=== PATIENT | female | born 1975 | race Caucasian/White ===

== ENCOUNTER 2016-10-03 06:18 | Emergency (ER) | payer MEDICAID ==
[2016-10-03 06:28] VITALS: TEMP 98.6; O2SAT 98
[2016-10-03] MEDS ORDERED: Dexamethasone 4 mg/1 ml IM STA (07:28)
[2016-10-03] MEDS ORDERED: Dexamethasone 4 mg/1 ml ONE (07:38)
[2016-10-03 07:46] VITALS: BP 147/71; PULSE 77; RESP 18
--- NOTE | 2016-10-03 07:50 | C.PDOC ---
History Of Present Illness 40 y/o female presents to ED with complaints of pain on right arm and elbow for the "past months" worse in the morning. Patient reports tingling in fingers and difficulty grasping items. Patient denies trauma, fever, rash numbness or weakness. No other complaints at this time. Time Seen by Provider: 10/03/16 07:06 Chief Complaint (Nursing): Upper Extremity Problem/Injury History Per: Patient History/Exam Limitations: no limitations Onset/Duration Of Symptoms: Days Current Symptoms Are (Timing): Still Present Quality: Sharp Past Medical History Reviewed: Historical Data, Nursing Documentation, Vital Signs Vital Signs: Last Vital Signs Temp 98.6 F 10/03/16 06:25 Pulse 77 10/03/16 07:45 Resp 18 10/03/16 07:45 BP 147/71 10/03/16 07:45 Pulse Ox 98 10/03/16 08:31 Family History: States: Unknown Family Hx - Social History Hx Tobacco Use: No Hx Alcohol Use: No Hx Substance Use: No - Immunization History Hx Tetanus Toxoid Vaccination: No Hx Influenza Vaccination: Yes Hx Pneumococcal Vaccination: No Review Of Systems Except As Marked, All Systems Reviewed And Found Negative. Constitutional: Negative for: Fever, Chills Cardiovascular: Negative for: Chest Pain Musculoskeletal: Positive for: Arm Pain. Negative for: Hand Pain Skin: Negative for: Rash Neurological: Negative for: Weakness, Numbness Physical Exam - Physical Exam Appears: Non-toxic, No Acute Distress Skin: Normal Color, Warm Head: Atraumatic, Normacephalic Eye(s): bilateral: Normal Inspection Oral Mucosa: Moist Extremity: No Normal ROM (Limited ROM on wrist secondary to pain), No Tenderness , Capillary Refill (<2 seconds), No Swelling Extremity: Bilateral: Atraumatic, Normal Color And Temperature Pulses: Right Brachial: Normal, Left Radial: Normal Neurological/Psych: Oriented x3, Normal Speech, Normal Motor, Normal Sensation Gait: Steady ED Course And Treatment O2 Sat by Pulse Oximetry: 98 (Room air ) Pulse Ox Interpretation: Normal Medical Decision Making Medical Decision Making: Sling was applied to the Right arm and checked by me. Disposition - Disposition Referrals: Edil Ling MD [Staff Provider] - Julio Hu MD [Provisional Staff] - Disposition: HOME/ ROUTINE Disposition Time: 08:29 Condition: GOOD Additional Instructions: Use the sling only as needed and no longer than 5 days. Follow up with the Hand surgeon for further evaluation. Prescriptions: Naproxen [Naprosyn] 500 mg PO BID #20 tab traMADol/Acetaminophen [Ultracet 325 MG-37.5 MG] 1 tab PO Q8 PRN #15 tab PRN Reason: Pain Instructions: Carpal Tunnel Syndrome (ED) Forms: Work Excuse - Clinical Impression Clinical Impression: Carpal tunnel syndrome - PA / GEOSCIENTIST / Resident Statement MD/DO has reviewed & agrees with the documentation as recorded. - Scribe Statement The provider has reviewed the documentation as recorded by the Shannon Li All medical record entries made by the Shannon were at my direction and personally dictated by me. I have reviewed the chart and agree that the record accurately reflects my personal performance of the history, physical exam, medical decision making, and the department course for this patient. I have also personally directed, reviewed, and agree with the discharge instructions and disposition.
== END 2016-10-03 08:39 | disposition home or self-care (01) ==
LOC: C.ER 06:18
DX: G56.01 Carpal tunnel syndrome, right upper limb (principal)
CPT/HCPCS: 96372; 99284; J1100; J1885